=== PATIENT | male | born 1970 | race Caucasian/White ===

== ENCOUNTER → 2022-02-23 | Outpatient (CLI) | payer OTHER ==
--- NOTE | 2022-02-23 12:40 | Diagnostic Imaging Report ---
INDICATION: IMPAIRED SWALLOWING TECHNIQUE: Grayscale sonographic images of the thyroid gland. CORRELATION STUDY: None FINDINGS: RIGHT LOBE: 4.7 x 1.3 x 1.2 cm. There is normal echotexture about the right lobe. LEFT LOBE: 4.3 x 1.1 x 1.4 cm. There is normal echotexture about the left lobe. Isthmus appears unremarkable. IMPRESSION: Unremarkable appearing thyroid ultrasound examination. (Normal gland size: 4-5 x 2 x 2 cm) Dictated by: Dictated on workstation # [id number]
== END ==
LOC: RAD 12:30
PROVIDERS: ATTEND Nurse Practitioner Family
DX: R13.10 Dysphagia, unspecified (principal)
CPT/HCPCS: 76536